=== PATIENT | female | born 1975 | race Caucasian/White ===

== ENCOUNTER → 2021-10-16 15:09 | Outpatient (BNVA) | payer SELFPAY | PROVIDERS: Visit Provider Family Medicine Adult Medicine | DX: N18.4 Chronic kidney disease, stage 4 (severe) (principal); R10.84 Generalized abdominal pain; G89.29 Other chronic pain; Z83.3 Family history of diabetes mellitus; I73.00 Raynaud's syndrome without gangrene; N80.9 Endometriosis, unspecified | CPT/HCPCS: 80053; 81000; 82043; 83036; 84443; 85025 ==

== ENCOUNTER → 2022-08-05 15:36 | Outpatient (BNVA) | payer SELFPAY | PROVIDERS: PCP Family Medicine Adult Medicine; Visit Provider Family Medicine | DX: M79.671 Pain in right foot (principal) | CPT/HCPCS: 73620 ==